=== PATIENT | male | born 1960 | race Caucasian/White ===

== ENCOUNTER 2020-06-18 09:56 | Outpatient (RCR) | payer OTHER, SELFPAY ==
[2020-06-18] MEDS: COVID-19 VACC, MRNA(PFIZER)/PF 30 MCG/0.3 ML SYRINGE IM (12:28)
[2020-07-09] MEDS: COVID-19 VACC, MRNA(PFIZER)/PF 30 MCG/0.3 ML SYRINGE IM (12:18)
== END 2020-06-18 23:59 ==
LOC: IMMUN 09:56
PROVIDERS: PCP Family Medicine; Visit Provider Family Medicine
DX: Z23 Encounter for immunization (principal)
CPT/HCPCS: 0001A; 0002A; 91300

== ENCOUNTER → 2022-10-10 | Outpatient (CLI) | payer SELFPAY ==
--- NOTE | 2022-10-10 12:28 | CT_ITS ---
INDICATION: CALCIUM SCORE EXAMINATION: CT CHEST WITHOUT CONTRAST - CT Chest W/O Contrast Injection. Over read examination. TECHNIQUE: Helically acquired images were obtained of the chest. A radiation dose optimization technique was used for this scan. IV Contrast dosage and agent: None. COMPARISON: None. FINDINGS: LUNGS, PLEURA AND LARGE AIRWAYS: No masses, consolidation, or edema. No pleural effusion or thickening. No pneumothorax. THYROID: No thyroid lesions. HEART AND PERICARDIUM: Heart size is normal. No pericardial effusion. CORONARY ARTERIES: Coronary artery calcification is seen. VESSELS: Thoracic aorta is not dilated. MEDIASTINUM AND NAMITA: Small benign-appearing mediastinal lymph nodes. Esophagus is unremarkable. No hiatal hernia. UPPER ABDOMEN: Small lateral hernia. BONES: No suspicious lytic or blastic abnormality. CT/Limited Chest CT Cardiac Only IMPRESSION: Coronary artery calcification. Electronically Signed: Maciej Jackson MD at 12:43 EDT ,
--- NOTE | 2022-10-10 17:34 | CA.SCORE ---
Calcium Scoring Date of Study:: 10/10/22 Indications Indications: HTN Coronary Calcium Scoring: High-resolution Computed Tomographic imaging of the chest was performed on [10/10/22 ], with particular attention paid to the coronary arteries. Images from the examination were analyzed for the presence and extent of coronary artery calcification , using coronary calcium quantification software. The patient tolerated the procedure well and there were no complications. The results of the coronary calcification analysis are provided below. Findings Coronary Artery Left Main (LM): 0 Left Anterior Descending (LAD): 2 Left Circumflex (LCX): 0 Right Coronary Artery (RCA): 14 Total Agatston Score: 16 Percentile Rankinth to 50th % Calcium Scoring Interpretation: Different methods to categorize the overall amount of coronary plaque. Overall amount CAC SIS Visual of coronary plaque P1 Mild -100 <2 1-2 vessels with mild amount of plaque P2 Moderate 101-300 3-4 1-2 vessels with moderate amount, 3 vessels with mild amount of plaque P3 Severe 301-999 5-7 3 vessels with moderate amount, 1 vessel with severe amount of plaque P4 Extensive >1000 >8 2-3 vessels with severe amount of plaque Conclusion: Minimal atherosclerotic plaquing
== END | disposition home or self-care (01) ==
PROVIDERS: PCP Family Medicine
DX: I11.0 Hypertensive heart disease with heart failure (principal); I50.32 Chronic diastolic (congestive) heart failure; E78.5 Hyperlipidemia, unspecified; R00.1 Bradycardia, unspecified
CPT/HCPCS: 75571; 76380